=== PATIENT | female | born 1980 | race Caucasian/White ===

== ENCOUNTER → 2023-12-13 10:02 | Outpatient (REF) | payer OTHER, SELFPAY ==
[2023-12-13 16:20] LABS: Mumps Virus IgG Positive; Rubeola (Measles) IgG Positive
[2023-12-13 17:58] LABS: Varicella Zoster IgG (VZV) Positive
[2023-12-14 19:35] LABS: Rubella Positive
[2023-12-14 19:43] LABS: Hepatitis B Surface Antibody Positive
[2023-12-16 13:04] LABS: Quantiferon Mitogen minus NIL 7.36 IU/mL; Quantiferon NIL 0.02 IU/mL; Quantiferon Plus TB2 minus NIL 0.01 IU/mL (0.00-0.34); Quantiferon TB Gold Plus Negative (Negative)
== END ==
LOC: OHS 10:02
PROVIDERS: ATTENDING PHYSICIAN Nurse Practitioner Family
DX: Z23 Encounter for immunization (principal)
CPT/HCPCS: 36415; 86480; 86706; 86735; 86762; 86765; 86787

== ENCOUNTER 2025-06-04 06:21 | Day surgery (SDC) | payer BC, SELFPAY | END 2025-06-04 09:08 | disposition home or self-care (01) | LOC: GI 06:21 | PROVIDERS: ATTENDING PHYSICIAN Internal Medicine | DX: R19.7 Diarrhea, unspecified (principal); Q43.8 Other specified congenital malformations of intestine; K64.8 Other hemorrhoids | CPT/HCPCS: 45380; 88305 ==